=== PATIENT | female | born 1965 | race Hispanic/Latino ===

== ENCOUNTER 2017-05-08 21:08 | Emergency (ER) | payer OTHER ==
[2017-05-08 21:28] VITALS: TEMP 98.4
[2017-05-08] MEDS ORDERED: Lactated Ringer's 1,000 ML IV STA (22:08)
[2017-05-08 22:27] LABS: VENOUS BLOOD GAS BASE EXCESS 3.7 mmol/L (0.0-2.0); VENOUS BLOOD GAS PCO2 49 mmHg (40-60); VENOUS BLOOD GAS PO2 51 mm/Hg (30-55); VENOUS BLOOD PH 7.39 (7.32-7.43)
[2017-05-08 22:31] LABS: BASO % 0.5 % (0.0-2.0); EOS % 0.2 % (0.0-4.0); LYMPH # 0.5 K/uL (1.0-4.3); LYMPH % 16.3 % (20.0-40.0); MEAN CELL VOLUME 83.3 fl (81.0-99.0); MEAN CORPUSCULAR HEMOGLOBIN 27.1 pg (27.0-31.0); MEAN CORPUSCULAR HGB CONC 32.5 g/dL (33.0-37.0); MEAN PLATELET VOLUME 8.2 fl (7.2-11.7); MONO # 0.3 K/uL (0.0-0.8); MONO % 10.6 % (0.0-10.0); NEUT # 2.3 K/uL (1.8-7.0); NEUT % 72.4 % (50.0-75.0); NRBC % 0.1 % (0.0-0.0); RBC 4.79 Mil/uL (3.80-5.20); RED CELL DISTRIBUTION WIDTH 13.5 % (11.5-14.5); WHITE BLOOD COUNT 3.1 K/uL (4.8-10.8)
--- NOTE | 2017-05-08 22:33 | ED PDOC ---
HPI: General Adult Time Seen by Provider: 05/08/17 21:21 Chief Complaint (Nursing): GI Problem Chief Complaint (Provider): Weakness History Per: Patient History/Exam Limitations: no limitations Onset/Duration Of Symptoms: Days (3) Have you had recent travel within the past 21 days to any of the following countries: [place], [place], [place] or [place]?: No Current Symptoms Are (Timing): Still Present Additional History Per: Patient Additional Complaint(s): 51yo female with no past medical history, presents to ER with complaints of weakness for the past 3 days. Patient states she also had nausea, vomiting and diarrhea 3 days ago however the symptoms have now resolved. She reports a dry cough and sore throat as well. patient states 1.5 hours prior to arrival today, she felt "out of it" suddenly. She denies any fainting spell but states she could not think right and had no strength. Patient states she went to an urgent care center 3 days ago, had a flu test done which was negative. She was discharged home with anti-nausea medication and cough medications. She denies any recent sick contacts or travels. PCP: None Past Medical History Reviewed: Historical Data, Nursing Documentation, Vital Signs Vital Signs: Last Vital Signs Temp 98.4 F 05/08/17 21:28 Pulse 73 05/09/17 00:43 Resp 16 05/09/17 00:43 BP 124/87 05/09/17 00:43 Pulse Ox 99 05/09/17 00:43 - Medical History PMH: No Chronic Diseases - Surgical History Surgical History: No Surg Hx - Family History Family History: States: Other Other Family History: cancer - Allergies Allergies/Adverse Reactions: Allergies Allergy/AdvReac Type Severity Reaction Status Date / Time Penicillins Allergy Mild RASH Verified 05/08/17 21:14 Review of Systems ROS Statement: Except As Marked, All Systems Reviewed And Found Negative Constitutional: Positive for: Weakness ENT: Positive for: Throat Pain Respiratory: Positive for: Cough Physical Exam - Reviewed Nursing Documentation Reviewed: Yes Vital Signs Reviewed: Yes - Physical Exam Appears: Positive for: Uncomfortable (tired appearing) Skin: Positive for: Warm, Dry, Pallor Eye Exam: Positive for: EOMI ENT: Positive for: Normal ENT Inspection, Pharynx Is (clear), Other (tacky mucus membranes). Negative for: Pharyngeal Erythema, Tonsillar Exudate, Tonsillar Swelling Neck: Positive for: Painless ROM, Supple Cardiovascular/Chest: Positive for: Regular Rate, Rhythm. Negative for: Murmur Respiratory: Positive for: Normal Breath Sounds. Negative for: Wheezing Gastrointestinal/Abdominal: Positive for: Soft. Negative for: Tenderness, Mass , Distended, Guarding Back: Positive for: Normal Inspection. Negative for: Decreased ROM Extremity: Positive for: Normal ROM. Negative for: Deformity Lymphatic: Negative for: Adenopathy Neurologic/Psych: Positive for: Alert. Negative for: Motor/Sensory Deficits - Laboratory Results Result Diagrams: 05/08/17 22:00 05/08/17 22:00 - ECG O2 Sat by Pulse Oximetry: 98 (RA) Pulse Ox Interpretation: Normal Medical Decision Making Medical Decision Making: Impression: Weakness Differential: Viral infection, dehydration, anemia, electrolyte abnormalities, gastroenteritis Plan: -- Labs -- IV Fluids -- Rapid Flu -- Rapid Strep 12aml Labs with no emergently significant lab abnormalities. DW pt findings. Pt offered tamiflu but declines. Advised continue IV hydration and follow up with [facility] since pt has no PMD> Scribe Attestation: Documented by Orquidea Gimenez acting as a scribe for Yoana Montez MD. Provider Attestation: All medical record entries made by the Scribe were at my direction and personally dictated by me. I have reviewed the chart and agree that the record accurately reflects my personal performance of the history, physical exam, medical decision making, and the department course for this patient. I have also personally directed, reviewed, and agree with the discharge instructions and disposition. Disposition - Clinical Impression Clinical Impression: Viral syndrome - Disposition Referrals: [facility] [Outside] [facility] [Outside] Disposition: Routine/Home Disposition Time: 00:00 Condition: STABLE Instructions: Viral Syndrome (ED) Forms: [place] ([place]), [facility] ED School/Work Excuse
[2017-05-08 22:46] LABS: ALB/GLOB RATIO 1.3 (1.0-2.1); ALBUMIN 3.9 g/dL (3.5-5.0); ALT/SGPT 34 U/L (9-52); AST/SGOT 25 U/L (14-36); BLOOD UREA NITROGEN 13 mg/dl (7-17); CALCIUM 9.1 mg/dL (8.4-10.2); GFR AFRICAN-AMERICAN > 60; GFR NON-AFRICAN AMERICAN > 60; LIPASE 220 U/L (23-300); MAGNESIUM 1.9 MG/DL (1.6-2.3)
[2017-05-08 23:02] LABS: INR 1.2 (0.9-1.2); PARTIAL THROMBOPLASTIN TIME 70.4 Seconds (25.6-37.1); PROTHROMBIN TIME 12.9 Seconds (9.8-13.1)
[2017-05-09] MEDS ORDERED: Dextrose 5%/Lactated Ringer's 1,000 ML IV SCH (00:30)
[2017-05-09 00:43] VITALS: BP 124/87; PULSE 73; RESP 16
--- NOTE | 2017-05-09 14:10 | CARD ---
APPROVED REPORT EKG Measurement Heart [id number] <Conclusion> Normal sinus rhythm Possible Left atrial enlargement Rightward axis Borderline ECG
[2017-05-12 23:43] VITALS: O2SAT 98
== END 2017-05-09 00:51 | disposition home or self-care (01) ==
LOC: H.ER 21:08
DX: B34.9 Viral infection, unspecified (principal)
CPT/HCPCS: 80053; 82803; 82948; 83690; 83735; 84100; 85025; 85610; 85730; 86308; 87040; 87070; 87430; 87804; 93005; 96360; 99283; J7120